=== PATIENT | male | born 1980 | race Caucasian/White ===

== ENCOUNTER 2018-02-01 14:20 | Emergency (ER) | payer SELFPAY ==
[2018-02-01 14:34] VITALS: RESP 16; TEMP 98.1
--- NOTE | 2018-02-01 14:36 | EDPHY ---
H & P Time Seen by Provider: 02/01/18 14:26 HPI/ROS: CHIEF COMPLAINT: Seizure HISTORY OF PRESENT ILLNESS: This patient is a 37 y/o male with history of seizures arriving via EMS following several seizures at prison. Per nurse summary of EMS report, the patient had 7-8 seizures each lasting 10-15 seconds. He was not post ictal at any point following these. The patient had his pre-seizure aura, which is a sulfurous taste in his mouth, today while he was on the top bunk in his cell. He tried to climb down to a safe place, but began seizing during that time. He has difficulty remembering what happened following this until his arrival here in the emergency department. The patient began having focal seizures in childhood, which progressed to grand mal seizures. He usually takes Lamictal for seizure prevention, but is unable to remember his current dose. He recently moved to [place], and has run out of all his medicines as he does not yet have a new primary care physician. He takes other medications including Seroquel and alprazolam as well, and is concerned that his seizures may be related to medication withdrawal. No fever, vomiting, visual changes, headache, neck pain, or other associated symptoms. REVIEW OF SYSTEMS: A 10 point review of systems was performed and is negative with the exception of the elements mentioned in the history of present illness. Patient reports he has shingles, but this is intermittent and runs up and down his back from his left buttock to scapula. Past Medical/Surgical History: Seizures. IBS. History of Diverticulitis. Social History: Recently moved to [place]. Currently incarcerated. [facility]'s office deputy at bedside. Physical Exam: General Appearance: Alert, pleasant Eyes: Pupils equal and round, no conjunctival pallor or injection ENT, Mouth: Mucous membranes moist Neck: Normal inspection Respiratory: Lungs are clear to auscultation Cardiovascular: Regular rate and rhythm Gastrointestinal: Abdomen is soft and non-tender Neurological: A&O, nonfocal exam Skin: Multiple pinpoint areas of non-palpable erythematous rash within a 1cm area left buttock. No vesicles. No other lesions. Warm and dry. Extremities: Nontender, no pedal edema Psychiatric: Mood and affect normal Constitutional: Initial Vital Signs Temperature (C) 36.7 C 02/01/18 14:20 Heart Rate 97 02/01/18 14:20 Respiratory Rate 16 02/01/18 14:20 Blood Pressure 162/94 H 02/01/18 14:20 O2 Sat (%) 98 02/01/18 14:20 O2 Delivery Mode Room Air Allergies/Adverse Reactions: No Known Allergies Allergy (Unverified 02/01/18 14:30) Home Medications: Medication Instructions Recorded Ativan 02/01/18 Clonidine 02/01/18 LaMICtal 02/01/18 QUEtiapine FUMARATE [Seroquel 200 200 mg PO HS #10 tab 02/01/18 mg (*)] Seroquel 02/01/18 Xanax 02/01/18 lamoTRIgine [Lamictal Xr] 25 mg PO DAILY #30 tab.er.24 02/01/18 Medical Decision Making ED Course/Re-evaluation: 37 y/o male presents following several reported seizures in prison. Exam unremarkable. Patient reports he has shingles, but his rash presentation and distribution are not consistent with shingles. Patient reports his medications are as follows: Clonidine 0.1mg Alprazolam 1mg prn Lamictal [unknown, possibly 25mg] Seroquel 300mg, 2 QHS Recently d/c Dilantin and Trazodone. Plan to administer 25mg PO Lamictal, 800mg PO ibuprofen. Plan for labs including CBC, chemistries. 15:15 Patient's nurse reports he is refusing to take his Lamictal. Per ED RN, pt had some unusual movements, remained alert, did not appear like seizure activity. I reevaluated the patient and encouraged him to take his medications, which he did. Obs in ED, no recurrent seizure or seizure-like activity. I feel that he is safe and stable to be discharged back to the prison. Unclear if he is having seizures or not, but now back on seizure medication, which has controled his seizures in the past. Differential Diagnosis: Differential diagnosis includes though it is not limited to status epilepticus, hypoglycemia, intracranial hemorrhage, CVA, benzodiazepine withdrawal, alcohol withdrawal, epilepsy. - Data Points Laboratory Results: Laboratory Results 02/01/18 14:54 02/01/18 14:54 02/01/18 02/01/18 14:54 14:54 WBC 7.96 10^3/uL 10^3/uL (3.80-9.50) RBC 6.01 10^6/uL 10^6/uL (4.40-6.38) Hgb 17.7 g/dL H g/dL (13.7-17.5) Hct 51.5 % H % (40.0-51.0) MCV 85.7 fL fL (81.5-99.8) MCH 29.5 pg pg (27.9-34.1) MCHC 34.4 g/dL g/dL (32.4-36.7) RDW 14.2 % % (11.5-15.2) Plt Count 269 10^3/uL 10^3/uL (150-400) MPV 9.3 fL fL (8.7-11.7) Neut % (Auto) 73.1 % % (39.3-74.2) Lymph % (Auto) 20.5 % % (15.0-45.0) [place] % (Auto) 5.7 % % (4.5-13.0) Eos % (Auto) 0.3 % L % (0.6-7.6) Baso % (Auto) 0.1 % L % (0.3-1.7) Nucleat RBC Rel Count 0.0 % % (0.0-0.2) Absolute Neuts (auto) 5.83 10^3/uL 10^3/uL (1.70-6.50) Absolute Lymphs (auto) 1.63 10^3/uL 10^3/uL (1.00-3.00) Absolute Monos (auto) 0.45 10^3/uL 10^3/uL (0.30-0.80) Absolute Eos (auto) 0.02 10^3/uL L 10^3/uL (0.03-0.40) Absolute Basos (auto) 0.01 10^3/uL L 10^3/uL (0.02-0.10) Absolute Nucleated RBC 0.00 10^3/uL 10^3/uL (0-0.01) Immature Gran % 0.3 % % (0.0-1.1) Immature Gran # 0.02 10^3/uL 10^3/uL (0.00-0.10) Sodium 141 mEq/L mEq/L (135-145) Potassium 4.7 mEq/L mEq/L (3.5-5.2) Chloride 107 mEq/L mEq/L (97-110) Carbon Dioxide 17 mEq/l L mEq/l (22-31) Anion Gap 17 mEq/L H mEq/L (8-16) BUN 13 mg/dL mg/dL (7-23) Creatinine 0.8 mg/dL mg/dL (0.7-1.3) Estimated GFR > 60 Glucose 84 mg/dL mg/dL (70-100) Calcium 9.3 mg/dL mg/dL (8.5-10.4) Medications Given: Discontinued Medications Ibuprofen (Motrin) 800 mg PO EDNOW ONE Stop: 02/01/18 14:58 Last Admin: 02/01/18 15:06 Dose: 800 mg Lamotrigine (Lamictal) 25 mg PO EDNOW ONE Stop: 02/01/18 14:49 Last Admin: 02/01/18 15:06 Dose: 25 mg Departure - Departure Disposition: Law Enforcement/Court/Penitentiary Clinical Impression: Seizure disorder Condition: Good Instructions: Epilepsy (ED) Additional Instructions: Take medications as prescribed. Return with any concerns. Referrals: Hamilton Radford DO [Medical Doctor] - As per Instructions (Call to make an appointment.) Prescriptions: lamoTRIgine [Lamictal Xr] 25 mg PO DAILY #30 tab.er.24 QUEtiapine FUMARATE [Seroquel 200 mg (*)] 200 mg PO HS #10 tab Report Scribed for: Shameka Mclaughlin Report Scribed by: Helen Novak Date of Report: 02/01/18 Time of Report: 14:36 Physician Review and Approval Statement: 02/01/18 14:36 Portions of this note were transcribed by a medical support assistant. I personally performed a history, physical exam, medical decision making, and confirmed accuracy of information the transcribed note.
[2018-02-01] MEDS ORDERED: lamoTRIgine 25 MG TAB PO ONE (14:48)
[2018-02-01] MEDS ORDERED: IBUPROFEN 800 MG TAB PO ONE (14:57)
[2018-02-01 14:58] LABS: PLATELET COUNT 269 10^3/uL (150-400)
[2018-02-01 16:52] VITALS: BP 129/67; PULSE 89; O2SAT 93
== END 2018-02-01 17:11 ==
LOC: EEVIPCON 14:20
DX: G40.909 Epilepsy, unspecified, not intractable, without status epilepticus (principal)

== ENCOUNTER 2018-02-06 05:33 | Emergency (ER) | payer SELFPAY ==
[2018-02-06] MEDS ORDERED: NS 1,000 ML IV ONE (05:38)
--- NOTE | 2018-02-06 05:42 | EDPHY ---
H & P Source: Patient, EMS - Medical/Surgical History Hx Asthma: Yes Hx Chronic Respiratory Disease: No Hx Diabetes: No Hx Cardiac Disease: No Hx Renal Disease: No Hx Cirrhosis: No Hx Alcoholism: Yes Hx HIV/AIDS: No Hx Splenectomy or Spleen Trauma: No Other PMH: SZ, Esophageal mass, pancreatitis - Social History Smoking Status: Never smoked Time Seen by Provider: 02/06/18 05:40 HPI/ROS: HPI CHIEF COMPLAINT: Seizure, alcohol intoxication HISTORY OF PRESENT ILLNESS: This patient is a 37-year-old male he has seizure disorder and supposed to be taking Lamictal, questionable he supposed to be taking Keppra, presents to the emergency room after he had a seizure at home. Lasting less than 2 min. EMS arrived to find him with police he was thrashing around the police he was postictal. He then had a very short less than 30 sec generalized tonic-clonic seizure. He received 5 mg IM Versed in route, 10 mg IV Valium. He now presents emergency room calm and cooperative. No seizure activity here. He admits to alcohol this evening. Questionable cocaine. Denies any complaints denies trauma, headache, chest pain or shortness of breath , denies fever. Patient states he is compliant with his Lamictal. Past Medical History: Seizure disorder on Lamictal, IBS, diverticulitis Past Surgical History: No recent surgery Social History: Polysubstance abuse including cocaine and alcohol. Family History: Noncontributory ROS REVIEW OF SYSTEMS: A comprehensive 10 point review of systems is otherwise negative aside from elements mentioned in the history of present illness. Exam Constitutional appears well nontoxic no acute distress, triage nursing summary reviewed, vital signs reviewed, awake/alert. Eyes normal conjunctivae and sclera, EOMI, PERRLA. HENT oropharynx did not bite his tongue, normal inspection, atraumatic, moist mucus membranes, no epistaxis, neck supple/ no meningismus, no raccoon eyes. Respiratory clear to auscultation bilaterally, normal breath sounds, no respiratory distress, no wheezing. Cardiovascular rate normal, regular rhythm, no murmur, no edema, distal pulses normal. Gastrointestinal no bowel bladder incontinence soft, non-tender, no rebound, no guarding, normal bowel sounds, no distension, no pulsatile mass. Genitourinary no CVA tenderness. Musculoskeletal no midline vertebral tenderness, full range of motion, no calf swelling, no tenderness of extremities, no meningismus, good pulses, neurovascularly intact. Skin pink, warm, & dry, no rash, skin atraumatic. Neurologic awake, alert and oriented x 3, AAOx3, moves all 4 extremities equally, motor intact, sensory intact, CN II-XII intact, normal cerebellar, normal vision, normal speech. Psychiatric normal mood/affect. Heme/Lymph/Immune no lymphadenopathy. Differential Diagnosis: Includes but is not limited to in a particular order epilepsy, seizure breakthrough, electrolyte disturbance, alcohol intoxication, cocaine toxicity Medical Decision Making: Plan for this patient check blood work including bicarb, electrolytes, alcohol level, drug screen. Monitor for further seizure activity. Re-evaluation: Patient states he takes 25 mg p.o. Lamictal. 0559: Patient's fiancee now at bedside states that he has "Stress related Seizures" fiancee's stating that they would like to go home and they would like to be discharged from the emergency room. The patient was ambulatory and walking around and now is found lying on the ground in his room. He had some very brief myoclonic jerking movements that I evaluated, however does not appear to be seizure. he has no postictal state. His fiancee is at bedside and states that he is having a "stress seizure" when I asked him if he has ever had pseudoseizures he started becoming very angry at me started cursing at me. There is no bowel bladder incontinence and no postictal state here. This is while he was shaking on the floor. His fiancee would like to take him home. 0600: I did order him a dose of Lamictal. His vital signs are stable. There was no true seizure witnessed here in the emergency room. I do recommend he follows up with his primary care doctor. 0607: Patient flopping on the floor, but not post-ictal, no seizure activity. I have ordered him 2MG IV ativan to calm him down. 0648: Patient back in bed resting calmly. Received 2 mg IV Ativan. As well as p.o. Lamictal. His alcohol level is noted to be high at 225. He will need time to metabolize alcohol and medications. Once he is more sober he can be discharged with his fiancee who is at bedside. 0657: Patient having yelling and screaming in the room. I have ordered 5 mg IV Haldol. 0709: Patient is becoming aggressive and agitated and combative with staff. He is asking to leave. He is ripping off medical devices. He has the capacity to leave. He can make his own medical decisions. He is ambulatory with a stable gait. I have Asked him multiple times to stay for further evaluation of his abnormal movements however he has declined. He will leave against medical advice. He has Started to get in a verbal altercation with his fiancee at bedside and they are escalating. I have asked the police to come as well as security to be at bedside for staff's safety. After the patient started to escalate in the emergency room he has become verbally and somewhat physically aggressive with staff as well as starting to scream at his fiancee I have asked the police to be the patient bedside. The patient requesting discharge and is leaving against medical advice. Patient refused sign paper-work. He is walking out of the ER with security. ( Jarod Rhodes) Constitutional: Initial Vital Signs Temperature (C) 36.7 C 02/06/18 05:38 Heart Rate 104 H 02/06/18 05:38 Respiratory Rate 16 02/06/18 05:38 Blood Pressure 141/93 H 02/06/18 05:38 O2 Sat (%) 97 02/06/18 05:38 O2 Delivery Mode Room Air Allergies/Adverse Reactions: No Known Allergies Allergy (Unverified 02/06/18 05:37) Home Medications: Medication Instructions Recorded Ativan 02/01/18 Clonidine 02/01/18 LaMICtal 02/01/18 QUEtiapine FUMARATE [Seroquel 200 200 mg PO HS #10 tab 02/01/18 mg (*)] Seroquel 02/01/18 Xanax 02/01/18 lamoTRIgine [Lamictal Xr] 25 mg PO DAILY #30 tab.er.24 02/01/18 lamoTRIgine [LamICTAL] 25 mg PO DAILY #30 tab 02/06/18 Medical Decision Making Other Provider: The patient was signed out AMA by Dr. Rhodes (Elmer Bynum) - Data Points Laboratory Results: Laboratory Results 02/06/18 05:35 02/06/18 05:35 Medications Given: Discontinued Medications Haloperidol Lactate (Haldol Injection) 5 mg IVP EDNOW ONE Stop: 02/06/18 06:55 Last Admin: 02/06/18 06:59 Dose: 5 mg Sodium Chloride (Ns) 1,000 mls @ 0 mls/hr IV ONCE ONE PRN Reason: Wide Open Stop: 02/06/18 05:39 Last Admin: 02/06/18 05:46 Dose: 1,000 mls Lamotrigine (Lamictal) 25 mg PO EDNOW ONE Stop: 02/06/18 05:46 Last Admin: 02/06/18 06:44 Dose: 25 mg Lorazepam (Ativan Injection) 2 mg IVP EDNOW ONE Stop: 02/06/18 06:09 Last Admin: 02/06/18 06:08 Dose: 2 mg Departure - Departure Disposition: Against Medical Advice Clinical Impression: Seizure Condition: Good Instructions: Epilepsy (ED) Additional Instructions: 1. Return emergency room if develops any worsening symptoms questions or concerns. 2. Refrain from drinking alcohol. Referrals: Patient,NotPresent [Unknown] - As per Instructions Prescriptions: lamoTRIgine [LamICTAL] 25 mg PO DAILY #30 tab
[2018-02-06] MEDS ORDERED: lamoTRIgine 25 MG TAB PO ONE (05:45)
[2018-02-06 05:51] LABS: PLATELET COUNT 289 10^3/uL (150-400)
[2018-02-06] MEDS ORDERED: LORazepam 2 MG/ML INJ ONE (06:05)
[2018-02-06] MEDS ORDERED: LORazepam 2 MG/ML INJ IVP ONE ×2 (06:08)
[2018-02-06] MEDS ORDERED: HALOPERIDOL LACT 5 MG/ML INJ IVP ONE (06:54)
[2018-02-06] MEDS ORDERED: HALOPERIDOL LACT 5 MG/ML INJ ONE (06:55)
[2018-02-06 07:16] VITALS: BP 141/74; PULSE 81; RESP 16; TEMP 97.9; O2SAT 96
== END 2018-02-06 07:16 | disposition left against medical advice (07) ==
LOC: EDUNIT#
DX: G40.909 Epilepsy, unspecified, not intractable, without status epilepticus (principal); J45.909 Unspecified asthma, uncomplicated
CPT/HCPCS: 96374; G0480; J1630; J2060

== ENCOUNTER 2018-04-13 07:36 | Emergency (ER) | payer SELFPAY ==
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
[2018-04-13 08:54] VITALS: BP 167/85
== END 2018-04-13 08:52 | disposition home or self-care (01) ==
LOC: EDUNIT#
DX: S16.1XXA Strain of muscle, fascia and tendon at neck level, initial encounter (principal); S09.93XA Unspecified injury of face, initial encounter; J45.909 Unspecified asthma, uncomplicated; X58.XXXA Exposure to other specified factors, initial encounter; Y92.89 Other specified places as the place of occurrence of the external cause; Y99.8 Other external cause status; Y93.01 Activity, walking, marching and hiking

== ENCOUNTER 2018-04-29 22:55 | Emergency (ER) | payer SELFPAY ==
[2018-04-29 23:00] VITALS: BP 129/102
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
[2018-04-29] MEDS ORDERED: IBUPROFEN 800 MG TAB PO ONE (23:23)
== END 2018-04-29 23:41 | disposition left against medical advice (07) ==
DX: S69.91XA Unspecified injury of right wrist, hand and finger(s), initial encounter (principal); J45.909 Unspecified asthma, uncomplicated; V18.0XXA Pedal cycle driver injured in noncollision transport accident in nontraffic accident, initial encounter; Y92.410 Unspecified street and highway as the place of occurrence of the external cause; Y99.8 Other external cause status; Y93.55 Activity, bike riding

== ENCOUNTER 2018-04-30 00:09 | Emergency (ER) | payer SELFPAY ==
[2018-04-30] MEDS ORDERED: HYDROCODONE/APAP 5/325 TAB PO ONE (00:38)
[2018-04-30] MEDS ORDERED: LORazepam 1 MG TAB PO ONE (00:39)
[2018-04-30] MEDS ORDERED: LET GEL TOPICAL 1 EA SYR TP ONE (00:39)
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
[2018-04-30] MEDS ORDERED: DIAZEPAM 5 MG PREPACK#4 BTL TAKEHOME ONE (01:53)
[2018-04-30 02:17] VITALS: BP 170/90
== END 2018-04-30 02:39 | disposition home or self-care (01) ==
LOC: CED 00:09
DX: S62.346A Nondisplaced fracture of base of fifth metacarpal bone, right hand, initial encounter for closed fracture (principal); S62.144A Nondisplaced fracture of body of hamate [unciform] bone, right wrist, initial encounter for closed fracture; S16.1XXA Strain of muscle, fascia and tendon at neck level, initial encounter; S09.90XA Unspecified injury of head, initial encounter; G40.909 Epilepsy, unspecified, not intractable, without status epilepticus; J45.909 Unspecified asthma, uncomplicated; W20.8XXA Other cause of strike by thrown, projected or falling object, initial encounter; Y92.009 Unspecified place in unspecified non-institutional (private) residence as the place of occurrence of the external cause
CPT/HCPCS: 70450-PO; 72125-PO; 73130-PO; 80175-90; A4565

== ENCOUNTER 2018-05-02 02:02 | Emergency (ER) | payer SELFPAY ==
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
[2018-05-02 03:16] VITALS: BP 150/90
== END 2018-05-02 03:12 | disposition home or self-care (01) ==
LOC: EDUNIT#
DX: T14.8XXA Other injury of unspecified body region, initial encounter (principal); J45.909 Unspecified asthma, uncomplicated; V48.9XXA Unspecified car occupant injured in noncollision transport accident in traffic accident, initial encounter; Y92.410 Unspecified street and highway as the place of occurrence of the external cause

== ENCOUNTER 2018-07-05 | Emergency (ER) | payer SELFPAY | END 2018-07-05 17:41 | disposition home or self-care (01) ==